=== PATIENT | male | born 1985 | race Caucasian/White ===

== ENCOUNTER 2016-12-13 01:03 | Emergency (ER) | payer OTHER ==
[~2016-12-13] VITALS: Ht 188 cm; Wt 90.7 kg
[2016-12-13] MEDS ORDERED: CEPHALEXIN500 MG PO (01:56)
[2016-12-13] MEDS ORDERED: TRAMADOL HCL50 MG PO (01:56)
== END 2016-12-13 02:06 | disposition home or self-care (01) ==
LOC: ED 01:03
DX: K08.89 Other specified disorders of teeth and supporting structures (principal); Z88.0 Allergy status to penicillin; Z88.1 Allergy status to other antibiotic agents
CPT/HCPCS: 99283

== ENCOUNTER 2017-11-28 00:33 | Emergency (ER) | payer OTHER ==
[~2017-11-28] VITALS: Ht 188 cm; Wt 90.7 kg
--- OUTSIDE RECORDS SUMMARY | ~2017-11-28 | XMS | Clinical Summary ---
Demographics + + + | Address | [address] | | | [place] [address] | + + + | Home Phone | | + + + | Preferred Language | Unknown | + + + | Marital Status | Single | + + + | Faith Affiliation | Unknown | + + + | Race | Unknown | + + + | Ethnic Group | Unknown | + + + Author + + + | Author | [facility] | | | and [place] | + + + | Organization | [facility] | | | and [place] | + + + | Address | Unknown | + + + | Phone | Unavailable | + + + Support + + +---------+ + | Name | Relationship | Address | Phone | + + +---------+ + | IVETTE JOHNSTON | ECON | Unknown | | | Alex/SUSHILA Aquino | | | | + + +---------+ + Care Team Providers + +------+ + | Care Breast Surgeon Name | Role | Phone | + +------+ + PP | Unavailable | + +------+ + Allergies Not on File Current Medications Not on file Active Problems Not on file Social History + +-------+ +--------+------+ | Tobacco Use | Types | Packs/Day | Years | Date | | | | | Used | | + +-------+ +--------+------+ | Never Assessed | | | | | + +-------+ +--------+------+ + + + | Sex Assigned at | Date Recorded | | | | + + + | Not on file | | + + + Plan of Treatment + + + + + | Health Maintenance | Due Date | Last Done | Comments | + + + + + | Vaccine: | | | | | Dtap/Tdap/Td (1 - | 5 | | | | Tdap) | | | | + + + + + | Vaccine: Influenza | | | | | (#1) | 8 | | | + + + + + Results Not on filefrom Last 3 Months"
--- OUTSIDE RECORDS SUMMARY | ~2017-11-28 | XMS | Clinical Summary ---
Demographics + + + | Address | [address] | | | [place] [address] | + + + | Home Phone | | + + + | Preferred Language | Unknown | + + + | Marital Status | Single | + + + | Jain Affiliation | Unknown | + + + | Race | Unknown | + + + | Ethnic Group | Unknown | + + + Author + + + | Author | [facility] | | | and [place] | + + + | Organization | [facility] | | | and [place] | [...] Team Providers + +------+ + | Care Rural Mail Carrier Name | Role | Phone | + [...]
[~2017-11-28 00:33] MED LIST: CEPHALEXIN500 MG PO; TRAMADOL HCL50 MG PO
== END 2017-11-28 02:37 | disposition home or self-care (01) ==
LOC: ED 00:33
DX: K52.9 Noninfective gastroenteritis and colitis, unspecified (principal); Z88.0 Allergy status to penicillin; Z88.1 Allergy status to other antibiotic agents
CPT/HCPCS: 80053; 81001; 85025; 96361; 96374; 99284; J2405; J7030

== ENCOUNTER 2020-10-28 21:25 | Emergency (ER) | payer BC, OTHER ==
[~2020-10-28] VITALS: Ht 188 cm; Wt 95.2 kg
--- OUTSIDE RECORDS SUMMARY | 2020-10-28 21:28 | XMS ---
PreManage Notification: HORACIO RODRIGUEZ Security Customer Insight Analyst Events No recent Security Events currently on file CRITERIA MET - Group Notification CARE PROVIDERS There are no care providers on record at this time. Kelly has no Care Guidelines for this patient. [place] VISIT COUNT (12 MO.) 1 LETHA Loja TOTAL 1 NOTE: Visits indicate total known visits. ED/C VISIT TRACKING (12 MO.) 10/28/2020 21:26 LETHA Gottlieb [place] TYPE: Emergency COMPLAINT: - L KNEE PAIN/INJURY INPATIENT VISIT TRACKING (12 MO.) No inpatient visits to display in this time frame [email or web address]
[2020-10-28] MEDS ORDERED: HYDROCODON-ACE1 EA10 PO (22:11)
[2020-10-28] MEDS ORDERED: CRUTCH1 EACH MISC (22:13)
== END 2020-10-28 22:27 | disposition home or self-care (01) ==
LOC: ED 21:25
DX: S93.402A Sprain of unspecified ligament of left ankle, initial encounter (principal); X50.1XXA Overexertion from prolonged static or awkward postures, initial encounter; Z88.0 Allergy status to penicillin; Z88.1 Allergy status to other antibiotic agents
CPT/HCPCS: 73560; 99283-25

== ENCOUNTER 2024-06-17 22:15 | Emergency (ER) | payer BC ==
[~2024-06-17] VITALS: Ht 188 cm; Wt 105.0 kg
[~2024-06-17 22:15] MED LIST changes: +CRUTCH1 EACH MISC; +HYDROCODON-ACE1 EA10 PO
--- OUTSIDE RECORDS SUMMARY | 2024-06-17 22:21 | XMS ---
PreManage Notification: HORACIO RODRIGUEZ Security Maturity Checker Events No recent Security Events currently on file CRITERIA MET - Group Notification CARE PROVIDERS There are no care providers on record at this time. Kelly has no Care Guidelines for this patient. [place] VISIT COUNT (12 MO.) 1 LETHA Loja TOTAL 1 NOTE: Visits indicate total known visits. ED/C VISIT TRACKING (12 MO.) 06/17/2024 22:15 LET[facility] Gottlie[facility] [place] TYPE: Emergency COMPLAINT: - RAPID HR INPATIENT VISIT TRACKING (12 MO.) No inpatient visits to display in this time frame [email or web address]
[2024-06-17] MEDS ORDERED: ADENOSINE 3 MG/ML VIAL IV ONE ×2 (22:25→22:30)
[2024-06-17] MEDS ORDERED: LACTATED RINGER'S 1,000 ML IV ONE (22:30)
[2024-06-17 22:36] LABS: BASOPHILS 0.5 % (0-2); EOSINOPHILS 1.1 % (0-6); HEMOGLOBIN 16.7 g/dL (12.0-18.0); LYMPHOCYTES 30.6 % (24-44); MCH 29.7 (27-36); MCHC 34.2 g/dl (30-36); MCV 86.9 fl (81-99); MONOCYTES 7.7 % (0-12); NEUTROPHILS 60.1 % (39-80); PLATELET COUNT 391 K/uL (140-440); RBC 5.63 M/ul (4.3-5.7); RDW 13.5 (10.5-15.0)
[2024-06-17] MEDS ORDERED: METOPROLOL TARTRATE 5 MG/5 ML VIAL IV ONE (22:45)
[2024-06-17 23:07] LABS: ALBUMIN 4.8 g/dL (3.4-5.0); ALBUMIN/GLOBULIN RATIO 1.33 (1.1-2.4); ANION GAP 15.3 (7-21); BILIRUBIN, TOTAL 0.4 mg/dL (0.2-1.0); BUN/CREATININE RATIO 12.8 (6.0-28.6); CALCIUM 9.8 mg/dL (8.5-10.1); CREATININE, SERUM 1.25 mg/dL (0.70-1.30); POTASSIUM 3.3 mmol/L (3.5-5.1); PROTEIN, TOTAL 8.4 g/dL (6.4-8.2)
[2024-06-17] MEDS ORDERED: POTASSIUM CHLORIDE 10 MEQ TABCR PO ONE (23:45)
[2024-06-18] MEDS ORDERED: ATENOLOL25 MG PO (00:13)
[2024-06-18] MEDS ORDERED: K-TAB ER20 MEQ PO (00:13)
[2024-06-18 00:26] LABS: BILIRUBIN, URINE NEGATIVE (negative); BLOOD/HGB, URINE NEGATIVE (Negative); KETONE, URINE NEGATIVE (Negative); LEUK ESTERASE, URINE NEGATIVE (negative); NITRITE, URINE NEGATIVE (negative)
[2024-06-18 00:29] VITALS: BP 123/81
[2024-06-18 00:41] LABS: AMPHETAMINES, URINE POSITIVE (NEGATIVE); BARBITURATES, URINE NEGATIVE (NEGATIVE); BENZODIAZEPINE, URINE NEGATIVE (NEGATIVE); BUPRENORPHINE, URINE NEGATIVE (NEGATIVE); CANNABINOID, URINE NEGATIVE (NEGATIVE); COCAINE, URINE NEGATIVE (NEGATIVE); ECSTASY, URINE NEGATIVE (NEGATIVE); FENTANYL, URINE NEGATIVE (NEGATIVE); METHADONE, URINE NEGATIVE (NEGATIVE); OPIATES, URINE NEGATIVE (NEGATIVE); OXYCODONE, URINE NEGATIVE (NEGATIVE); PHENCYCLIDINE, URINE NEGATIVE (NEGATIVE)
--- NOTE | 2024-06-18 19:46 | EKG ---
[facility] [address] [facility] [address] [place] [address] Signed Supraventricular tachycardia Nonspecific ST abnormality Abnormal ECG No previous ECGs available Confirmed by Víctor Willams MD ([id number]) on 06/18/2024 7:46:28 PM Electronically Signed By: VÍCTOR WILLAMS MD 06/18/241945 PATIENT NAME: HORACIO RODRIGUEZ JR Electrocardiogram DATE OF : 85 PHYSICIAN: VÍCTOR WILLAMS MD REPORT #: [id number] REPORT IS CONFIDENTIAL AND NOT TO BE RELEASED WITHOUT AUTHORIZATION
--- NOTE | 2024-06-18 19:48 | EKG ---
[facility] [address] [place] [address] Signed Sinus tachycardia with fusion complexes Otherwise normal ECG When compared with ECG of 17-JUN-2024 22:19, (Unconfirmed) fusion complexes are now present Vent. rate has decreased BY 86 BPM Confirmed by Víctor Willams MD ([id number]) on 06/18/2024 7:47:45 PM Electronically Signed By: VÍCTOR WILLAMS MD 06/18/241947 PATIENT NAME: HORACIO RODRIGUEZ JR Electrocardiogram DATE OF : 85 PHYSICIAN: VÍCTOR WILLAMS MD REPORT #: [id number] REPORT IS CONFIDENTIAL AND NOT TO BE RELEASED WITHOUT AUTHORIZATION
== END 2024-06-18 00:29 | disposition home or self-care (01) ==
LOC: ED 22:15
PROVIDERS: Internal Medicine
DX: I47.10 Supraventricular tachycardia, unspecified (principal); E87.6 Hypokalemia; Z88.0 Allergy status to penicillin; Z88.1 Allergy status to other antibiotic agents; Z79.899 Other long term (current) drug therapy
CPT/HCPCS: 36415; 71045; 80053; 80307; 81003; 83735; 84443; 84484; 85025; 85379; 93005; 93010; 96374; 96375; 99285-25; A9270; J0153; J7121